=== PATIENT | male | born 1950 | race Caucasian/White ===

== ENCOUNTER 2025-02-27 14:02 | Emergency (ER) | payer OTHER ==
[2025-02-27] MEDS ORDERED: LEVO50TA6 PO (19:57)
[2025-02-27] MEDS ORDERED: ATOR20TA PO (19:57)
[2025-02-27] MEDS ORDERED: EMPA25TA PO (19:57)
[2025-02-27] MEDS ORDERED: GLIM1TAB PO (19:57)
[2025-03-02] MEDS ORDERED: LINE600T15 PO (12:29)
== END 2025-02-27 16:52 | disposition admitted as inpatient to this hospital (09) ==
LOC: ER 14:02
DX: L03.116 Cellulitis of left lower limb (principal); N28.9 Disorder of kidney and ureter, unspecified; E11.9 Type 2 diabetes mellitus without complications; E03.9 Hypothyroidism, unspecified; R60.0 Localized edema
CPT/HCPCS: 36415; 80053; 83605; 84145; 85025; 87040; 87070; 93971; 96365; 96367; 99285